=== PATIENT | male | born 1980 | race Caucasian/White ===

== ENCOUNTER 2017-12-25 22:24 | Emergency (ER) | payer OTHER ==
[2017-12-26] MEDS ORDERED: HYDROmorphone INJ* 2 MG/ML CARPUJECT SYRINGE IM ONE (00:03)
[2017-12-26] MEDS ORDERED: Lidocaine 2% PF * 5 ML VIAL ONE ×2 (00:05→02:55)
[2017-12-26] MEDS ORDERED: Lidocaine 2% EPI 1:200000 MPF*10-20 ML VIAL ONE (00:06)
[2017-12-26] MEDS ORDERED: HYDROmorphone INJ* 2 MG/ML CARPUJECT SYRINGE ONE (00:06)
[2017-12-26] MEDS ORDERED: Promethazine INJ(RESTRICTED)* 25 MG/ML 1 ML VIAL IM ONE (00:06)
[2017-12-26] MEDS ORDERED: Tetan/Diph/Pertus SYR(Tdap)* 0.5 ML SYR(BOOSTRIX) use SYR IM ONE (00:12)
[2017-12-26 02:23] LABS: ABS Basophils 0.1 10^3/ul (0-0.2); ABS Eosinophils 0.1 10^3/ul (0-0.6); ABS Monocytes 0.8 10^3/ul (0-0.8); ABS Neutrophils 10.9 10^3/ul (1.5-7.7); ABS Nucleated RBC 0 10^3/ul; Eosinophil % 0.4 % (0-6); Hematocrit 45 % (42-52); Hemoglobin 15.2 g/dl (14.0-18.0); Lymphocyte % 25.5 % (25-47); Mean Corpuscular HGB Conc 34 g/dl (31-36); Mean Corpuscular Hemoglobin 30 pg (27-31); Mean Corpuscular Volume 86 fL (80-94); Mean Platelet Volume 8.3 um3 (7.4-10.4); Nucleated Red Blood Cells % 0.2; Platelet Count 251 10^3/ul (150-450); Red Blood Count 5.17 10^6/ul (4.0-5.4); Red Cell Distribution Width 13 % (10.5-15); White Blood Count 15.9 10^3/ul (3.5-10.8)
[2017-12-26 02:33] LABS: EGFR Non-African American 127.6 (>60)
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
[2017-12-26] MEDS ORDERED: Sulfamethox/Trimethoprim DS 800/160* TAB PO ONE (04:34)
[2017-12-26 04:47] VITALS: BP 148/88
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
== END 2017-12-26 04:45 | disposition home or self-care (01) ==
LOC: ED 22:24
DX: S01.411A Laceration without foreign body of right cheek and temporomandibular area, initial encounter (principal); S01.311A Laceration without foreign body of right ear, initial encounter; W50.0XXA Accidental hit or strike by another person, initial encounter; Y93.89 Activity, other specified; Y92.199 Unspecified place in other specified residential institution as the place of occurrence of the external cause; Z11.4 Encounter for screening for human immunodeficiency virus [HIV]; J30.2 Other seasonal allergic rhinitis; K21.9 Gastro-esophageal reflux disease without esophagitis; N40.0 Benign prostatic hyperplasia without lower urinary tract symptoms; Z87.891 Personal history of nicotine dependence
CPT/HCPCS: 13152; 36415; 70486; 80053; 85025; 86703; 86706; 86803; 87340; 96372; 99282; A9270-GY; J1170; J2550